=== PATIENT | female | born 1980 | race Caucasian/White ===

== ENCOUNTER → 2018-04-18 | Outpatient (CLI) | payer BC ==
[2018-04-18 11:14] LABS: HCT 45.5 % (34.0-46.0); HGB 15.1 gm/dL (11.4-16.0); MCH 29.3 pg (25.0-35.0); MCHC 33.2 g/dL (31.0-37.0); MCV 88.1 fL (80.0-100.0); Mean Platelet Volume 6.5; Platelet Count 373 k/uL (150-450); RBC 5.17 m/uL (3.80-5.40); RDW 13.4 % (11.5-15.5); WBC 7.4 k/uL (3.8-10.6)
[2018-04-18 11:27] LABS: ALT 43 U/L (9-52); AST 28 U/L (14-36); Albumin 4.6 g/dL (3.5-5.0); Alkaline Phosphatase 88 U/L (38-126); Anion Gap 9 mmol/L; Blood Urea Nitrogen 17 mg/dL (7-17); Calcium 9.4 mg/dL (8.4-10.2); Carbon Dioxide 26 mmol/L (22-30); Chloride 107 mmol/L (98-107); Glucose 92 mg/dL (74-99); Potassium 4.5 mmol/L (3.5-5.1); Sodium 142 mmol/L (137-145); Total Bilirubin 0.5 mg/dL (0.2-1.3)
[2018-04-18 11:44] LABS: T4, Free (Free Thyroxine) 0.97 ng/dL (0.78-2.19)
--- NOTE | 2018-04-18 12:45 | US ---
EXAMINATION TYPE: US thyroid st tissue head/neck DATE OF EXAM: 04/18/2018 COMPARISON: NONE CLINICAL HISTORY: E03.8 Other specified hypothyroidism. GLAND SIZE: Right Lobe: 4.7 x 1.7 x 1.3 cm Overall Parenchyma: homogenous Left Lobe: 4.4 x 1.5 x 1.2 cm Overall Parenchyma: homogeneous Isthmus Thickness: 0.3 cm NODULES RIGHT: # of nodules measured on right: 1 1. 0.9 X 0.7 x 0.7 cm isoechoic mixed nodule at the mid lateral pole with well-defined margins. Th is nodule is wide as is tall and shows no intranodular vascularity. LEFT: # of nodules measured on left: 1 1. 0.8 X 0.7 x 0.6 cm hypoechoic mixed nodule at the lower pole with well-defined margins. This no dule is wider than tall and shows no intranodular vascularity. ISTHMUS: # of nodules measured in the isthmus: 0 Bilateral neck scanned: no evidence of lymphadenopathy. IMPRESSION: Subcentimeter thyroid nodules.
[2018-04-18 17:06] LABS: DHEA Sulfate 102.8 ug/dL (26.0-430.0)
[2018-04-18 17:31] LABS: Thyroid Peroxidase Antibodies <28.0 U/mL (0.0-60.0)
== END | disposition home or self-care (01) ==
LOC: RADUSWWP 10:18
PROVIDERS: ATTEND Internal Medicine Endocrinology, Diabetes & Metabolism
DX: E04.2 Nontoxic multinodular goiter (principal); E03.8 Other specified hypothyroidism; R53.83 Other fatigue
CPT/HCPCS: 36415; 76536; 80053; 82024; 82533; 82607; 82627; 82672; 84146; 84439; 84443; 84481; 85027; 86376

== ENCOUNTER → 2019-02-20 | Outpatient (CLI) | payer BC ==
--- NOTE | 2019-02-21 08:06 | US ---
EXAMINATION TYPE: US thyroid st tissue head/neck DATE OF EXAM: 02/20/2019 COMPARISON: US 04/18/2018 CLINICAL HISTORY: E04.1 THYROID NODULE. Thyroid nodule. GLAND SIZE: Right Lobe: 5.2 x 1.8 x 1.6 cm Overall Parenchyma: homogenous Left Lobe: 4.9 x 1.5 x 1.3 cm Overall Parenchyma: homogeneous Isthmus Thickness: 0.25 cm NODULES RIGHT: # of nodules measured on right: 1 1. 0.9 X 0.9 x 0.7 cm isoechoic mixed nodule at the mid pole with well-defined margins. This nodul e is wider than tall and shows intranodular vascularity. Prior size: 0.9 x 0.7 x 0.7 cm LEFT: # of nodules measured on left: 1 1. 0.9 X 0.8 x 0.7 cm hypoechoic mixed nodule at the lower pole with well-defined margins. This no dule is wider than tall and shows intranodular vascularity. Prior size: 0.9 x 0.7 x 0.6 cm ISTHMUS: # of nodules measured in the isthmus: 0 Bilateral neck scanned. Hypoechoic area with hyperechoic center and vascularity at hilum measurin .7 x 0.7 x 0.3 cm. IMPRESSION: Stable subcentimeter thyroid nodules. Overall mildly enlarged thyroid. Nodules are similar in size da ting back to 2018.
== END | disposition home or self-care (01) ==
LOC: RADUSWWP 16:56
PROVIDERS: ATTEND Internal Medicine Endocrinology, Diabetes & Metabolism
DX: E04.1 Nontoxic single thyroid nodule (principal); E04.9 Nontoxic goiter, unspecified
CPT/HCPCS: 76536

== ENCOUNTER → 2019-03-09 | Outpatient (CLI) | payer BC ==
[2019-03-09 09:02] LABS: HCT 47.3 % (34.0-46.0); MCH 29.7 pg (25.0-35.0); MCHC 31.8 g/dL (31.0-37.0); MCV 93.4 fL (80.0-100.0); Mean Platelet Volume 6.2; Platelet Count 309 k/uL (150-450); RBC 5.06 m/uL (3.80-5.40); RDW 12.9 % (11.5-15.5); WBC 6.4 k/uL (3.8-10.6)
[2019-03-09 16:43] LABS: African American GFR (CKD) 106.9 (60.0-200.0); Albumin 4.5 g/dL (3.80-4.90); Albumin/Globulin Ratio 2.05 (1.60-3.17); Anion Gap 8.4 mmol/L (4.00-12.00); BUN/Creat Ratio 17.5 Ratio (12.00-20.00); Carbon Dioxide 26.6 mmol/L (21.6-31.8); Globulin 2.2 g/dL (1.6-3.3); Total Bilirubin 0.4 mg/dL (0.2-1.2); Total Protein 6.7 g/dL (6.2-8.2)
[2019-03-09 16:49] LABS: Progesterone 0.6 ng/mL; Thyroid Peroxidase Antibodies <28.0 U/mL (0.0-60.0)
[2019-03-09 16:51] LABS: Prolactin 7.6 ng/mL (2.8-29.2); T4, Free (Free Thyroxine) 1.1 ng/dL (0.80-1.80)
== END | disposition home or self-care (01) ==
LOC: LABWHC1 08:01
PROVIDERS: ATTEND Internal Medicine Endocrinology, Diabetes & Metabolism
DX: E04.1 Nontoxic single thyroid nodule (principal); R53.83 Other fatigue
CPT/HCPCS: 36415; 80053; 82024; 82306; 82533; 82607; 82627; 82672; 84144; 84146; 84403; 84439; 84443; 84481; 85027; 86376

== ENCOUNTER → 2020-03-04 | Outpatient (CLI) | payer BC ==
--- NOTE | 2020-03-04 07:51 | US ---
EXAMINATION TYPE: US thyroid st tissue head/neck DATE OF EXAM: 03/04/2020 COMPARISON: 03/04/2019 CLINICAL HISTORY: 39-year-old female E04.1 thyroid nodule, E03.8 hypothyroidism. Follow up TECHNIQUE: Multiple sonographic images of the thyroid gland are obtained. FINDINGS: GLAND SIZE: Right Lobe: 4.4 x 2.1 x 1.5 cm Overall Parenchyma: homogenous Left Lobe: 5.0 x 1.4 x 1.4 cm Overall Parenchyma: homogeneous Isthmus Thickness: 0.2 cm NODULES RIGHT: # of nodules measured on right: 1 1. 1.2 X 1.0 x 0.9 cm heterogeneous hypoechoic nodule at the mid pole with well-defined margins. T his nodule is taller than wide and shows intranodular vascularity. Prior size: 0.9 x 0.7 x 0.7 cm LEFT: # of nodules measured on left: 1 1. 1.1 X 0.9 x 0.8 cm mixed nodule at the mid pole with well-defined margins. This nodule is wider than tall and shows intranodular vascularity. Prior size: 0.9 x 0.7 x 0.6 cm ISTHMUS: # of nodules measured in the isthmus: 0 Bilateral neck scanned, no evidence of lymphadenopathy. IMPRESSION: A single nodule in the right side. These show minimal enlargement in the interval. On the right, rekha uring 12 x 10 mm and on the left measuring 11 x 9 mm (both having measured 9 x 7 mm, previously). IMPRESSION:
[2020-03-04 08:53] LABS: T4, Free (Free Thyroxine) 0.85 ng/dL (0.78-2.19)
== END | disposition home or self-care (01) ==
LOC: RADUSWWP 07:03
PROVIDERS: ATTEND Internal Medicine Endocrinology, Diabetes & Metabolism
DX: E04.9 Nontoxic goiter, unspecified (principal); E04.1 Nontoxic single thyroid nodule; E03.8 Other specified hypothyroidism; R53.83 Other fatigue
CPT/HCPCS: 76536; 82607; 84439; 84443; 84481; 86376

== ENCOUNTER → 2021-02-12 | Outpatient (CLI) | payer BC ==
--- NOTE | 2021-02-13 07:42 | US ---
EXAMINATION TYPE: US thyroid st tissue head/neck DATE OF EXAM: 02/12/2021 COMPARISON: CLINICAL HISTORY: E04.1 thyroid nodule. Not on thyroid meds, no hx thyroid biopsy GLAND SIZE: Right Lobe: 4.6 x 2.1 x 1.7 cm Overall Parenchyma: homogenous Left Lobe: 4.7 x 1.8 x 1.4 cm Overall Parenchyma: homogeneous Isthmus Thickness: 0.2 cm NODULES RIGHT: # of nodules measured on right: 1 1. 1.2 X 0.9 x 0.8 cm, mid lateral, mixed cystic and solid, hypoechoic nodule, which is wider than tall, with smooth margins, without echogenic foci. TR 3 Prior size: 1.2 x 1.0 x 0.9 cm LEFT: # of nodules measured on left: 1 1. 0.9 X 0.9 x 0.8 cm, lower mid, mixed cystic and solid, hypoechoic nodule, which is wider than ta ll, with smooth margins, without echogenic foci. Prior size: 1.1 x 0.9 x 0.8 cm ISTHMUS: # of nodules measured in the isthmus: 0 Bilateral neck scanned, no evidence of lymphadenopathy. IMPRESSION: Mildly suspicious nodule right lobe thyroid 2017 ACR TI-RADS LEVEL: TR-RADS 3 - Mildly Suspicious: Follow if > 1.5 cm, FNA if > 2.5 cm *Highest TI-RADS level nodule reported
== END | disposition home or self-care (01) ==
LOC: RADUSWWP 16:22
PROVIDERS: ATTEND Internal Medicine Endocrinology, Diabetes & Metabolism
DX: E04.1 Nontoxic single thyroid nodule (principal)
CPT/HCPCS: 76536

== ENCOUNTER → 2021-02-23 | Outpatient (CLI) | payer BC ==
[2021-02-23 11:55] LABS: Estradiol 53.5 pg/mL; T4, Free (Free Thyroxine) 1.24 ng/dL (0.800-1.800)
[2021-02-23 15:01] LABS: Progesterone 0.1 ng/mL
== END | disposition home or self-care (01) ==
LOC: LABWHC1 07:54
PROVIDERS: ATTEND Internal Medicine Endocrinology, Diabetes & Metabolism
DX: E03.8 Other specified hypothyroidism (principal); E04.1 Nontoxic single thyroid nodule; R53.83 Other fatigue
CPT/HCPCS: 36415; 82533; 82670; 84144; 84146; 84439; 84443; 84480

== ENCOUNTER → 2021-06-04 | Outpatient (CLI) | payer BC ==
[2021-06-04 18:47] LABS: Follicle Stimulating Hormone 2.3 mIU/mL; Luteinizing Hormone 2.1 mIU/mL; T4, Free (Free Thyroxine) 1.12 ng/dL (0.800-1.800)
[2021-06-04 22:03] LABS: Estradiol 35.6 pg/mL; Prolactin 11.1 ng/mL (2.800-29.200); Testosterone 3.85 ng/mL (9.01-47.94)
[2021-06-05 00:16] LABS: Thyroid Peroxidase Antibodies <9.0 U/mL (0.0-33.0)
== END | disposition home or self-care (01) ==
LOC: LABWHC1 13:04
PROVIDERS: ATTEND Internal Medicine Endocrinology, Diabetes & Metabolism
DX: E66.9 Obesity, unspecified (principal); R53.83 Other fatigue; R68.82 Decreased libido; Z68.39 Body mass index [BMI] 39.0-39.9, adult
CPT/HCPCS: 36415; 82024; 82306; 82607; 82627; 82670; 83001; 83002; 83498; 83525; 84146; 84305; 84403; 84439; 84443; 84480; 86376

== ENCOUNTER → 2021-06-24 | Outpatient (CLI) | payer BC ==
[2021-06-25 15:12] LABS: Cortisol, Urine Free by LC-MS 11.5 ug/L; Free Cortisol 24 Hour,Urine 28.5 ug/day (<45.0)
== END | disposition home or self-care (01) ==
LOC: LABWHC1 08:32
PROVIDERS: ATTEND Internal Medicine Endocrinology, Diabetes & Metabolism
DX: E66.9 Obesity, unspecified (principal); R53.83 Other fatigue; R68.82 Decreased libido
CPT/HCPCS: 82530

== ENCOUNTER → 2021-06-25 | Outpatient (CLI) | payer BC ==
--- NOTE | 2021-06-25 16:34 | MR ---
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 Pituitary gland protocol. FINDINGS: Pituitary gland is normal in size with an sella turcica. Pituitary stalk shows slight thick ening proximally but normal position in the midline. There is fairly homogeneous postcontrast enhance ment without definitive area of nonenhancement. Suprasellar cistern is maintained. Optic chiasm is no t effaced. Midline structures demonstrate normal morphology. The craniocervical junction appears within normal limits. No gross hydrocephalus is seen. IMPRESSION: No MRI evidence for pituitary microadenoma or macroadenoma.
== END | disposition home or self-care (01) ==
LOC: RADMRIMAIN 07:32
PROVIDERS: ATTEND Internal Medicine Endocrinology, Diabetes & Metabolism
DX: E24.0 Pituitary-dependent Cushing's disease (principal)
CPT/HCPCS: 70553; A9585